=== PATIENT | female | born 1950 | race Caucasian/White ===

== ENCOUNTER → 2024-05-31 12:56 | Outpatient (BNVA) | payer MEDICARE, BC, SELFPAY | PROVIDERS: PCP Family Medicine; Referring Provider Family Medicine; Visit Provider Student in an Organized Health Care Education/Training Program | DX: M17.12 Unilateral primary osteoarthritis, left knee (principal) | CPT/HCPCS: 99215 ==

== ENCOUNTER 2024-11-12 16:07 | Outpatient (CLI) | payer MEDICARE, BC, SELFPAY ==
--- NOTE | 2024-11-12 13:00 | DI.RAD_ITS ---
Exam(s) XR KNEE LT 1V XR STANDING ALIGNMENT EXAM: XR STANDING ALIGNMENT CLINICAL HISTORY: PRE OP L TKA. TECHNIQUE: 2D digital imaging was performed. Standing AP views were performed from the pelvis through the ankles. Lateral view of the left knee COMPARISON: CR XR KNEE 4 VIEW LEFT from 07/28/2023 CR XR KNEE LT 1V from 11/12/2024 FINDINGS: BONES: No acute fracture is present. No bony destructive lesion is seen. Leg length discrepancy: The left femoral head projects approximately 1 cm superior to the right. JOINTS: Knees: There is moderate to severe narrowing of the left medial femoral tibial joint space and periarticular spurring. There is minimal valgus angulation. The right knee joint spaces are maintained. Mild callus chondrocalcinosis. The ankle joints are unremarkable. The hip joints show minimal degenerative changes.. SOFT TISSUE: Vascular calcifications. Venous varicosities. IMPRESSION: Advanced degenerative changes of the medial femoral tibial joint space of the left knee. Mild overall leg length discrepancy. DATA REPOSITORY: RADIATION DOSE DELIVERED:
== END 2024-11-12 16:08 | disposition home or self-care (01) ==
LOC: DIORS 16:08
PROVIDERS: PCP Family Medicine; Visit Provider Physician Assistant
DX: Z01.818 Encounter for other preprocedural examination (principal); M17.12 Unilateral primary osteoarthritis, left knee
CPT/HCPCS: 99024; 73560; 77073

== ENCOUNTER 2024-11-12 17:55 | Outpatient (CLI) | payer MEDICARE, BC, SELFPAY ==
[2024-11-12 14:51] LABS: HCT 39.5 % (36.0-46.0); HGB 13.1 g/dL (11.2-15.7); MCH 32.8 pg (27.0-33.0); MCHC 33.2 % (32.0-36.0); MCV 99 fL (80-95); MPV 9.8 fL (8.0-11.0); Platelet Count 251 10^3/uL (130-400); RBC 4.00 10^6/uL (3.93-5.22); RDW 12.4 % (11.7-14.6); RDW-SD 44.9 fL; WBC 4.82 10^3/uL (4.4-10.8)
[2024-11-12 15:18] LABS: Anion Gap 8.3 mmol/L (3-11); BUN 14 mg/dL (7-18); CO2 30.7 mmol/L (21.0-32.0); Calcium 9.8 mg/dL (8.5-10.1); Chloride 102 mmol/L (98-107); Estimated GFR 98.97 (mL/min/1.73m2); Glucose 97 mg/dL (74-106); Potassium 4.3 mmol/L (3.5-5.1); Sodium 141 mmol/L (136-145)
== END 2024-11-12 17:56 | disposition home or self-care (01) ==
LOC: LBN 17:55
PROVIDERS: PCP Family Medicine; Visit Provider Student in an Organized Health Care Education/Training Program
DX: M17.12 Unilateral primary osteoarthritis, left knee (principal); Z01.818 Encounter for other preprocedural examination
CPT/HCPCS: 80048; 85027

== ENCOUNTER 2024-11-28 09:26 | Day surgery (SDC) | payer MEDICARE, BC, SELFPAY ==
[2024-11-28] VITALS (24 sets, daily range): BP systolic 137–190; BP diastolic 57–106; PULSE 52–78; RESP 12–22; TEMP 36–36.7; O2SAT 97–100; BMI 24.2
--- NOTE | 2024-11-28 07:25 | W.PM.DSUDISC ---
Date of service: 11/28/24 Discharge Plan Disposition Patient Disposition: Home Condition: Good Discharge Details Reason For Visit: L TKR Attending Provider: Nimesh Garcia Primary Care Provider: [place] Meds and New Rx's Prescriptions: New celecoxib 200 mg capsule 200 mg PO BID Qty: 60 0RF aspirin 81 mg tablet,delayed release (DR/EC) 81 mg PO BID Qty: 60 0RF acetaminophen 500 mg tablet 1,000 mg PO TID Qty: 90 3RF hydromorphone 2 mg tablet 2 mg PO Q4H PRN (Reason: pain) Qty: 18 0RF pantoprazole 40 mg tablet,delayed release (DR/EC) 40 mg PO DAILY Qty: 14 0RF dexamethasone 4 mg tablet 4 mg PO DAILY Qty: 2 0RF docusate sodium 100 mg capsule 100 mg PO BID PRNQty: 28 0RF gabapentin 300 mg capsule 300 mg PO QHS Qty: 14 0RF Continued doxycycline hyclate 100 mg tablet,delayed release (DR/EC) 100 mg PO DAILY PRN Patient Comments: ROSACEA FLARE hydrochlorothiazide 25 mg tablet 25 mg PO DAILY nadolol 40 mg tablet 40 mg PO HS zolpidem [Ambien] 10 mg tablet 10 mg PO QHS PRN Slow-Mag 71.5 mg tablet,delayed release (DR/EC) 143 mg PO DAILY estradiol [Vagifem] 10 mcg tablet 10 mcg vaginal .COMPLEX Rx Instructions: 10 mcg vaginal twice a week; Discharge Instructions Additional Instructions: Total Knee Discharge Instructions Activity: The most important activity is to walk and to work on gentle motion (both flexion and extension). You should try to take short walks a few times a day. It is important that when resting you work on keeping the knee straight. Avoid putting a pillow behind the knee as this will encourage flexion. Work on range of motion exercises as provided by Physical Therapy. - Start outpatient physical therapy within 2 weeks. - You should wear the MARIAH hose on both legs for 2 weeks. You may remove these at night. You may also use any compression sock in place of the MARIAH hose. - Utilize [employer] to review exercises, see videos on exercises and obtain basic information pertaining to your surgery and your recovery. Dressing: Remove the Rj wrap by 2 days after your surgery and put on the MARIAH stocking given to you from the hospital. Keep the surgical dressing (underneath the RJ wrap) in place for at least one week. After the first week it may be removed and replaced with light gauze and tape or nothing. The wound and dressing may get wet after 3 days but avoid soaking the dressing or otherwise it will need to be changed. Many people prefer covering the dressing with cling wrap (saran wrap) to minimize it from getting soaked. If it gets wet, just pat dry. If it starts to peel off then it will need to be changed. Medications: - You should take Tylenol and anti-inflammatory Celebrex as your primary pain control medications. If the Celebrex is too expensive or not covered, please call the office for another alternative (Advil/Ibuprofen or Naproxen/Aleve) - You have been prescribed a stronger pain medication hydromorphone for breakthrough pain, take as needed as prescribed. - You have also been prescribed a stomach acid reduction agent Pantoprozole to help reduce stomach acid and reflux. - You have been prescribed Gabapentin to take at night for restlessness and nerve pain. - You will be taking Aspirin 81mg twice a day for DVT prevention unless instructed otherwise. - You have also been prescribed Decadron to take to control post-operative nausea and pain. You will start this tomorrow. - If you have constipation you should take Colace or Miralax (both [id number]). It takes most people 3-4 days to have a bowel movement. Follow-up: 2 weeks If you have any acute concerns or questions, please do not hesitate to contact the office at [phone]. You may contact Dr. Garcia with any questions after hours through the hospital at [phone] or on his cell phone at [phone]. Referrals: Nimesh Garcia MD [ [facility] STAFF PHYSICIAN, Orthopaedic Surgical] Equipment/Supplies: Walker Activity:: Activity as Tolerated Shower/Bathe:: 72 hours Diet:: As Tolerated Discharge Orders Discharge Orders: Discharge Order (Routine); Ordered 11/28/24 Ordered By: Aravind Cooper DS: Diagnosis Discharge Diagnosis (1) Arthritis of left knee: Status: Acute
[2024-11-28] MEDS: Celecoxib 200 MG CAP 400 MG PO (10:42)
[2024-11-28] MEDS: Gabapentin 300 MG CAP PO (10:42)
[2024-11-28] MEDS: Acetaminophen 500 MG TAB 1000 MG PO (10:43)
--- NOTE | 2024-11-28 10:47 | W.ANESPRE ---
General Info Date of Service Date Performed: 11/28/24 Height: 5 ft 2 in Weight: 60 kg Body Mass Index (BMI): 24.2 Surgical Procedure: Operation Date: 11/28/24 12:10 Proposed Procedure Side Surgeon p Knee Total Arthroplasty Left Nimesh Garcia MD Meds Allergies and Home Medications Allergies Allergy/AdvReac Type Severity Reaction Status Date / Time latex Allergy contact Verified 11/28/24 10:12 dermititis Sulfa (Sulfonamide Allergy rash Verified 11/28/24 10:12 Antibiotics) NSAIDS (Non-Steroidal AdvReac gastric Verified 11/28/24 10:12 Anti-Inflamma ulcers Home Medication ?Medication ?Instructions ?Recorded estradiol 10 mcg vaginal tablet 10 mcg vaginal .COMPLEX 10/16/20 (Vagifem) hydrochlorothiazide 25 mg tablet 25 mg PO DAILY 10/16/20 magnesium chloride 71.5 mg 143 mg PO DAILY 10/16/20 (magnesium chloride) tablet,delayed release (Slow-Mag) nadolol 40 mg tablet 40 mg PO HS 10/16/20 zolpidem 10 mg tablet (Ambien) 10 mg PO QHS PRN 10/16/20 doxycycline hyclate 100 mg 100 mg PO DAILY PRN 11/12/24 tablet,delayed release acetaminophen 500 mg tablet 1,000 mg (2 x 500 mg) PO TID #90 11/28/24 tabs aspirin 81 mg tablet,delayed 81 mg PO BID #60 tabs 11/28/24 release celecoxib 200 mg capsule 200 mg PO BID #60 caps 11/28/24 dexamethasone 4 mg tablet 4 mg PO DAILY #2 tabs 11/28/24 docusate sodium 100 mg capsule 100 mg PO BID PRN #28 caps 11/28/24 gabapentin 300 mg capsule 300 mg PO QHS #14 caps 11/28/24 hydromorphone 2 mg tablet 2 mg PO Q4H PRN pain #18 tabs 11/28/24 pantoprazole 40 mg tablet,delayed 40 mg PO DAILY #14 tabs 11/28/24 release Current Visit Medications: Current Medications Generic Name Dose Route Start Last Admin Trade Name Freq PRN Reason Stop Dose Admin Acetaminophen 1,000 mg 11/28/24 06:00 11/28/24 10:43 Acetaminophen 500 Mg Tab PO 11/28/24 23:59 1,000 mg PREOP NAHEED Administration Acetaminophen 1,000 mg 11/28/24 07:24 Acetaminophen 500 Mg Tab PO 12/28/24 07:23 TID PRN PRN Analgesia Celecoxib 400 mg 11/28/24 06:00 11/28/24 10:42 Celecoxib 200 Mg Cap PO 11/28/24 23:59 400 mg PREOP NAHEED Administration Docusate Sodium 100 mg 11/28/24 07:24 Docusate Sodium 100 Mg Cap PO 12/28/24 07:23 BID PRN PRN Constipation Gabapentin 300 mg 11/28/24 06:00 11/28/24 10:42 Gabapentin 300 Mg Cap PO 11/28/24 23:59 300 mg PREOP NAHEED Administration Hydromorphone HCl 0 mg 11/28/24 07:24 Hydromorphone 2 Mg Tab PO 12/28/24 07:23 Q3H PRN PRN Pain Ringer's Solution 1,000 mls @ 80 mls/hr 11/28/24 06:00 IV 11/28/24 23:59 INFUSION NAHEED Cefazolin Sodium/Dextrose 2 gm in 50 mls @ 100 mls/hr 11/28/24 06:00 Ancef Duplex IVPB 11/28/24 23:59 PREOP NAHEED Tranexamic Acid/Sodium Chloride 1,000 mg in 100 mls @ 600 mls/hr 11/28/24 06:00 IVPB 11/28/24 23:59 PREOP NAHEED IV Miscellaneous Supplies 1 each 11/28/24 06:00 Iv Access IV 11/28/24 23:59 DIRECTED NAHEED Ondansetron HCl 4 mg 11/28/24 07:24 Ondansetron 4 Mg/2 Ml Vial IVP 12/28/24 07:23 Q6H PRN PRN Nausea Polyethylene Glycol 17 gm 11/28/24 07:24 Polyethylene Glycol 3350 17 Gm Packet PO 12/28/24 07:23 BID PRN PRN Constipation Sodium Chloride 0 ml 11/28/24 06:00 Normal Saline Flush 10 Ml Syr IV 11/28/24 23:59 PRN PRN Sodium Chloride 0 ml 11/28/24 06:00 Normal Saline 10 Ml Vial IJ 11/28/24 23:59 DIRECTED PRN Sterile Water 0 ml 11/28/24 06:00 Water,Injection,Sterile 10 Ml Vial IJ 11/28/24 23:59 DIRECTED PRN PFSH Active Problems Active Problems: Problem Status Onset Code Arthritis of left knee Acute M17.12 Conductive hearing loss, external ear Acute H90.2 Impacted cerumen, bilateral Acute H61.23 Hyperlipidemia Acute E78.5 Peptic ulcer disease Chronic K27.9 Varicose veins of left lower extremity Acute I83.92 Raynaud disease Acute I73.00 Hypertension Chronic I10 Rosacea Acute L71.9 Medical History Medical History History of 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 White's office Paroxysmal SVT (supraventricular tachycardia) History of rectal fissure Family history of heart disease History of Helicobacter pylori infection Surgical History Surgical History History of squamous cell carcinoma excision Dr. White 07/2021 History of cataract surgery Normal colonoscopy 03/31/2016 terminal ilium bx. ileal mucosa with no acute ilelitis, granulomas or ulcers History of esophagogastroduodenoscopy (EGD) 07/16,12/15 and 02/14 History of oral lesions floor of mouth biopsy 09/19/2008 H/O varicose vein ligation Left leg 02/2007 Status post MATIAS-BSO 2000 for pathology benign dermoid S/P bunionectomy 1998 Tobacco Smoking/Tobacco Use Status: Never Alcohol Alcohol Intake: current Alcohol intake frequency: 0-2 drinks per day Alcohol type: wine Substance Use Substance use: Never Substance use type: does not use Vital Signs and Lab Results Vital Signs Most Recent Vital Signs in EMR: Most Recent Vital Signs Temp Pulse Resp BP Pulse Ox 36.2 C L 66 16 179/106 H 100 11/28/24 10:23 11/28/24 10:23 11/28/24 10:23 11/28/24 10:23 11/28/24 10:23 Lab Results Complete Blood Count: WBC, (4.4-10.8) 4.82 10^3/uL 11/12/24, 14:15 RBC, (3.93-5.22) 4.00 10^6/uL 11/12/24, 14:15 Hgb, (11.2-15.7) 13.1 g/dL 11/12/24, 14:15 Hct, (36.0-46.0) 39.5 % 11/12/24, 14:15 Plt Count, (130-400) 251 10^3/uL 11/12/24, 14:15 Complete Metabolic Panel: Sodium, (136-145) 141 mmol/L 11/12/24, 14:15 Potassium, (3.5-5.1) 4.3 mmol/L 11/12/24, 14:15 Chloride, (98-107) 102 mmol/L 11/12/24, 14:15 Carbon Dioxide, (21.0-32.0) 30.7 mmol/L 11/12/24, 14:15 BUN, (7-18) 14 mg/dL 11/12/24, 14:15 Creatinine, (0.55-1.02) 0.5 mg/dL L 11/12/24, 14:15 Est GFR (CKD-EPI 2020), (mL/min/1.73m2) 98.97 11/12/24, 14:15 Calcium, (8.5-10.1) 9.8 mg/dL 11/12/24, 14:15 Glucose, (74-106) 97 mg/dL 11/12/24, 14:15 Anesthesia Assessment and Plan Anesthesia History Personal History: No History of Anesthesia Complications Family History: No Family History of Anesthesia Complications Exercise Tolerance Exercise Tolerance: Metabolic Equivalents>4 Pertinent Negatives Pertinent Negatives: No Symptoms of GERD, No Major Cardiovascular Symptoms or Complaints, No Major Pulmonary Symptoms or Complaints and No History of CVA/TIA Cardiac & Pulmonary Exam Cardiac Exam: Normal S1/S2 Heart Sounds Pulmonary Exam: Clear Bilateral Breath Sounds Implantable Cardiac Device Does patient have a Pacemaker or an ICD?: No Airway Exam Known Difficult Airway: No Mallampati Class: 2 Mouth Opening: Normal (> 3cm) Thyromental Distance: Greater than 3 cm Neck Range of Motion: Full ROM Neck Circumference: Normal Teeth Condition: Normal Dentition ASA Classification ASA Score: ASA 2 Emergency Case?: No NPO Status NPO Status: NPO Clears >2 hours, Solids >8 hours Anesthesia Plan Resuscitation Status: Full Code Anesthesia Technique: Spinal Anesthesia Airway Planned: Natural Airway Pain Management: Surgeon and patient request nerve block Monitors Used: Standard Monitors and SedLine
[2024-11-28] MEDS: Lactated Ringers 1,000 ML 80 ML IV (11:00)
[2024-11-28] MEDS: ceFAZolin 2 GM/50 ML BAG IVPB (11:15)
[2024-11-28] MEDS: TRANEXAMIC ACID/SOD. CHL. 1,000 MG/100 ML BAG 600 MG IVPB (11:19)
--- NOTE | 2024-11-28 11:45 | W.ANESNERVE ---
Nerve Block Single Injection Procedure Date and Time Date Performed: 11/28/24 Procedure Start: 10:55 Location Where Procedure Performed Procedure Location: Day Surgery Unit Reason Performed: Postoperative Analgesia Requesting Provider: Nimesh Garcia Timeout Performed Timeout Performed: Yes Monitoring Used ECG, Blood Pressure, SpO2 and See EMR for corresponding vital signs Sterility Sterility: Hand Hygiene, Surgical Cap, Surgical Mask, Sterile Gloves and Chlorhexidine Sedation Given During Procedure Sedation Given (Indicate Dose Given): Versed IV Dose:: 1mg Patient Mental Status Patient Mental Status: Sedate with meaningful communication Nerve Block 1st Nerve Block: Laterality: Left Block Type: Adductor Canal Ultrasound Image Saved?: Yes Needle / Catheter Used: 100mm SonoPlex II Local Anesthetic Bolus (Indicate Dose Given): Lidocaine used for local infiltration of skin, Bupivacaine 0.25% Dose:: 8ml and Exparel Dose:: 8ml Additives (Indicate Dose Given): None Ultrasound: Sterile probe cover and gel used Nerve Stimulator: Supplement to Ultrasound use and No twitch or parasthesia noted < 0.5 mA (0.8) Paresthesia: None Procedure Tolerated: No Complications and Patient tolerated well Procedure Outcome: Successful Performed By: Luz Shepard Supervised By: Valentina Belcher 2nd Nerve Block: Laterality: Left Block Type: Other (anterior femoral cutaneous nerve block) Ultrasound Image Saved?: Yes Needle / Catheter Used: 100mm SonoPlex II Local Anesthetic Bolus (Indicate Dose Given): Lidocaine used for local infiltration of skin, Bupivacaine 0.25% Dose:: 2ml and Exparel Dose:: 2ml Additives (Indicate Dose Given): None Ultrasound: Sterile probe cover and gel used Nerve Stimulator: Supplement to Ultrasound use and No twitch or parasthesia noted < 0.5 mA (0.8) Paresthesia: None Procedure Tolerated: Patient tolerated well Procedure Outcome: Successful Performed By: Luz Shepard Supervised By: Valentina Belcher
[2024-11-28] MEDS: HYDROmorphone 2 MG/ML SYR IVP ×2 (13:12→13:24)
--- NOTE | 2024-11-28 13:13 | W.ANESPOSTOP ---
Postoperative Evaluation Date, Time and Location Date Performed: 11/28/24 Time Performed: 13:13 Patient Location: PACU Vital Signs Most Recent Imported Vital Signs: Most Recent Vital Signs Temp Pulse Resp BP Pulse Ox 36.6 C 63 15 155/81 H 99 11/28/24 12:56 11/28/24 12:57 11/28/24 12:57 11/28/24 12:56 11/28/24 12:57 Pain Score Most Recent Pain Score: Most Recent Pain Score Pain Level 5 11/28/24 13:02 Assessment Mental Status: Awake (Alert & Oriented to Patient Baseline) Airway and Respiratory Function: Patent airway with normal (patient baseline) respiratory exam Cardiovascular Function: Hemodynamically Stable Hydration Status: Adequately Hydrated Nausea & Vomiting: No Nausea or Vomiting Pain: Pain is tolerable per patient Peripheral Nerve Block: Regional nerve block not resolved at time of post operative discharge
[2024-11-28] MEDS: HYDROmorphone 2 MG TAB PO (14:30)
[2024-11-28] MEDS: Tranexamic Acid 650 MG TAB 1300 MG PO (15:02)
--- NOTE | 2024-11-28 15:41 | PT.INIE ---
PT Notes Visit Reasons: L TKR Physical Therapy Day Surgery Initial Evaluation Date: 11/28/24 Referring Doctor: CECY Hampton PT Orders: PT CONSULT: left knee OA s/p TKA post op day #0 Precautions: WBAT Patient Profile/Admitting Diagnosis: Selena is a 74 year old female with left knee OA s/p TKA post op day #0. Social History/Home Situation:Retired. Resides with her in a multi-level home with 0 KEITH, full flight to laundry in basement. Equipment Owned/DME: none Subjective: Selena states that she is feeling well. She's agreeable to getting up for PT intervention. Objective: General Observation: Resting in bed, ANABEL wrap to LLE, IV to LUE. Mental Status: A&Ox3 Pain: 2/10 initial; 10 post-rx ROM: Right Upper Extremity: WFL Left Upper Extremity: WFL Right Lower Extremity: WFL Left Lower Extremity: demonstrates AROM 0-100* flexion Strength: Right Upper Extremity: WFL Left Upper Extremity: WFL Right Lower Extremity: WFL Left Lower Extremity: Able to perform SLR without extension lag. Able to pump ankles and wiggle toes Sensation: intact distally Bed Mobility/Transfers: Supine to sit : supervision Sit to stand : supervision Stand to sit : supervision with cues for technique and hand placement Bed to chair: FWW, WBAT, CGA Gait: Ambulates 100'x2 with FWW, CGA-SBA Stairs: Manages therapeutic stairs, 4x3, 6x2 with bilateral upper extremities to rails and SBA, Step to pattern. Balance: Static Sitting: Normal Dynamic Sitting: Normal Static Standing: Good Dynamic Standing: Fair Informed Consent/Education: Patient instructed in purpose of PT consult. Packet containing [] exercise protocol has been given to patient. Education and training on initial set of exercises that can be done at home have been completed with patient. Treatment: Initial Evaluation (74043) Therapeutic Exercises ([id number]): Instructed in the following post-op exercises: Quad sets 10x Ankle Pumps 10x Glute sets 10x heel slides 10x SLR 10x seated march 10x passive knee extension 2-3 minute intervals Assessment: Patient presents with clinical signs and symptoms consistent with current/admitting diagnoses that have resulted to mobility limitations, gait instability, generalized weakness, and impairment of motor control as demonstrated by the following impairment level findings: 1. Decreased strength to left knee major muscle groups 2. Impaired standing balance 3. Limitation of joint range of motion in left knee Impairments are contributing to the following functional limitations: 1. Inability to safely ambulate without assistive device 2. Increase completion time for mobility ADL performance 3. Increased fall risk Patient is assessed as low complexity based on the following: History: 74-year-old female with impairment level findings, functional limitations, and past medical history as indicated above Examination: Demonstrable impairment in strength, balance, and mobility level with underlying impairments and functional limitations as documented above Presentation: stable Decision Making: low Goals: N/A. PT evaluation and 1-2 treatment sessions only for functional mobility training using recommended AD and for HEP instruction. Plan of Care/Treatment Plan: N/A. PT evaluation and 1-2 treatment session only for functional mobility training using recommended AD and for HEP instruction. DISCHARGE RECOMMENDATIONS: Home with outpatient PT. Requires FWW for safe ambulation. TREATMENT CODE/TIME: 60059, [id number] ([id number]) Thank you for the opportunity to participate in the care of this patient. Please sign an return this page within 30 days if you agree with the above POC. Thank you! 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 White's office Paroxysmal SVT (supraventricular tachycardia) History of rectal fissure Family history of heart disease History of Helicobacter pylori infection Surgical History History of squamous cell carcinoma excision Dr. White 07/2021 History of cataract surgery Normal colonoscopy 03/31/2016 terminal ilium bx. ileal mucosa with no acute ilelitis, granulomas or ulcers History of esophagogastroduodenoscopy (EGD) 07/16,12/15 and 02/14 History of oral lesions floor of mouth biopsy 09/19/2008 H/O varicose vein ligation Left leg 02/2007 Status post MATIAS-BSO 2000 for pathology benign dermoid S/P bunionectomy 1999
--- NOTE | 2024-11-28 18:08 | W.PM.OP ---
Operative Note Operative Note PRE-OP DIAGNOSIS: Left Knee Osteoarthritis POST-OP DIAGNOSIS: same PROCEDURE: Left Total Knee Replacement SURGEON: Nimesh Garcia PIPE FITTER SUPERVISOR: Tayo Cooper ANESTHESIA TYPE: Spinal Refer to Anesthesia Record ESTIMATED BLOOD LOSS: 50 PATHOLOGY: none sent TOURNIQUET TIME: 0 COMPLICATIONS: None Patient was transported to: PACU Patient's condition: stable Implants: 1. Depuy Attune Cementless Cruciate Retaining Femoral Component, Size 5 2. Depuy Attune Cementless Fixed Bearing Tibial Component, Size 5 3. Depuy Attune 5x6mm CR/FB Poly Indications: I have seen Selena in clinic for symptoms of knee arthritis, confirmed with radiographic findings. She has exhausted nonoperative methods and was having significant limitations in daily function and desired better function and less pain. I discussed the technical details of a knee replacement. I explained the risks of the procedure to include, but not limited to, bleeding, infection, pain, stiffness, fracture, damage to nerves and vessels, damage to muscles and tendons, loosening, need for repeat procedure, blood clot and cardiopulmonary demise. Despite these risks, Selena elected to proceed. Findings: There was significant signs of arthritis primarily within the medial compartment where there was complete loss of cartilage and irregularity and eburnation of bone.. Procedure Description: Selena was greeted in the preoperative holding area where the correct side was identified and marked. The consent was reviewed with the patient and signed. The history and physical was updated. All questions were answered. Preoperative medications were administered: Acetaminophen 1000mg, Celebrex 400mg, and Gabapentin 300mg. An adductor canal block was then administered by the anesthesia team in the [facility]. She was taken back to the operating room. A spinal anesthestic was then administered. The patient was placed into the supine position on the operating room table. Posts were placed for positioning during the procedure. All bony prominences were well padded. Prophylactic antibiotics in the form of Cefazolin were administered. 1g of Tranxemic Acid was given intravenously within 30 minutes of incision. The left leg was then prepped with Chloraprep and draped in a standard fashion with impervious stockinette. A second prep with Chloraprep was performed prior to application of Iodine impregnated skin protection. A timeout to confirm correct identity, side and site, procedure, allergies, anesthesia, and medical concerns was performed. With the knee in some flexion, a midline incision was made overlying the knee. Full thickness skin flaps were raised once the extensor mechanism was encountered. These were raised medially and laterally. Any bleeding was controlled with electrocautery. Once the extensor mechanism was fully exposed, a medial parapatellar arthrotomy was performed in a flexed position. All bleeding from the arthrotomy and the geniculate arteries was coagulated. A medial subperiosteal peel was performed with electrocautery to the midcoronal plane. The fat pad was removed while keeping the patellar tendon protected. The anterior distal femur synovium was removed for later visualization. The ACL and PCL were resected and the anterior horn of the lateral meniscus was transected. The knee was then flexed with the patella everted. Large osteophytes from the tibia were removed. Large osteophytes from the femur were removed. Using a step drill, and based on preoperative templating, the femoral canal was entered. This was done with a step drill without any difficulty. The intramedullary distal femoral cut guide was inserted, set to a 5 degree valgus cut and 9mm cut thickness. The distal femoral cut guide was then held in position and pinned. With the soft tissues protected, the distal cut was performed. This was passed over a few times to ensure a planar cut. I then turned attention to the tibia. The extramedullary guide was placed onto the leg. The distal aspect was slid medial to adjust for position of center of ankle and stay in line with shaft of the tibia. Approximately 5 degrees of posterior slope was kept in the proximal cutting guide. The center of the guide was aligned with the PCL. The stylus was used to assess cut thickness. The medial side, most involved side, was set for a 4mm cut. This was then held in position and pinned into place with 2 additional pins and a cross pin for stability. The medial and lateral collateral ligaments were protected and the cut was performed. With this completed, it was assessed and noted to be of appropriate dimensions. The guide was removed. A spacer block was inserted and the knee was brought into extension. The 6mm spacer block provided full extension, without hyperextension and with stability of both the medial and lateral collateral ligaments was assessed. The pins from the femur and the tibia were then removed. The distal femur was then sized. The anterior stylus was placed onto the lateral ridge of the anterior femur. This indicated a size 5 femur. The external rotation of the guide was adjusted to 0 degrees to match the epicondylar axis, perpendicular to Vu?s line. The 4-in-1 cutting guide was the placed. The posterior medial femur cut was evaluated and appeared of good thickness. The spacer block was inserted underneath the cutting guide and stability was confirmed in 90 degrees of flexion. An fredy wing was used to confirm appropriate position of the anterior cut to avoid notching. This cutting guide was ensured to be flush on the cut surface and then pinned into place with headed pins. While protecting the soft tissues, quad tendon, and collateral ligaments, the anterior and posterior cuts were performed with a saw. The central two pins were removed and the posterior and anterior chamfers were cut next. The notch-cutting guide was placed. This was pinned to lateralize the femoral component as much as possible while keeping it flush on the cut surface. This was then pinned into position. A reciprocating saw was used to make the notch cut. A rasp smoothed the cut surfaces. The medial and lateral menisci were removed. A trial femoral component was then inserted, impacted down to the cut surfaces, and the lug holes were drilled. A provisional trial tibial component was placed and the knee was brought through range of motion. There was noted to be excellent extension and flexion. There was no significant instability. The patella was tracking without thumbs. A size 6mm polyethylene component provided the best range of motion and stability with less than 2mm gapping with medial and lateral stress and full extension without significant hyperextension. The tibial cut surface was fully exposed. The tibia was then sized as a 5. The tibia had been previously marked during trialing to correspond to the center of the tibial component to help with rotation. The trial was aligned to this tayo, approximately rotated to the medial 1/3rd of the tibial tubercle. The trial was pinned into place. The tibia was prepared with a reamer and a keel punch and lug holes. The trial components were removed. The final components were opened on the back table. The periosteal and capsular tissues, especially posteriorly, around the knee were then systematically injected with a periarticular cocktail consisting of 246mg of Ropivacaine, 0.5mg of Epinephrine, 0.08mg of Clonidine, and 30mg of Ketorolac, diluted to 100cc. On the back table, with the implants opened. The cementless knee components were placed. Starting with the tibial component, the tibia was subluxed anteriorly and the lug holes of the component were lined up. The tibia was then impacted with an impactor and mallet until the tibial component was in contact with the tibia. Then, the femoral component was inserted. The lug holes were aligned and the component was impacted into position. The final polyethylene component was inserted. The knee was irrigated with Surgiphor Betadine solution. This was allowed to sit in the knee for 3 minutes and then it was irrigated out with saline. The patella was tracking with a no-thumbs technique. A complete synovectomy was performed around the periphery of the patella. A lateral facetectomy was also performed. The capsule was then reapproximated with a No. 1 Vicryl at multiple locations. The capsule was finally closed with a No. 2 Stratafix, barbed suture. Deep tissues were then reapproximated with 0 Vicryl and 2-0 Vicryl. The skin was closed with a running 3-0 Monocryl in a subcuticular fashion. This was reinforced with skin glue. A Mepilex silver dressing was applied along with a [id number] ANABEL wrap. A CryoCuff was applied. Selena was transferred to the hospital bed without difficulty an suffering no apparent complication. Selena has a good prognosis. Physical therapy will start today and without restrictions, weight-bearing as tolerated. Aspirin 81mg BID will be used for DVT prophylaxis. Date of Procedure: 11/28/24
== END 2024-11-28 16:09 | disposition home or self-care (01) ==
LOC: SUR 09:26
PROVIDERS: PCP Family Medicine; Visit Provider Student in an Organized Health Care Education/Training Program
PROC: (CPT 27447; principal; 2024-11-28 12:00)
DX: M17.12 Unilateral primary osteoarthritis, left knee (principal); G89.18 Other acute postprocedural pain
CPT/HCPCS: 27447; 64447; 64450; 97110; 97161; C1776; J0665; J0666; J0690; J1100; J1171; J2003; J2250; J2401; J2405; J2704

== ENCOUNTER 2024-12-13 13:03 | Outpatient (CLI) | payer MEDICARE, BC, SELFPAY ==
--- NOTE | 2024-12-13 11:15 | DI.RAD_ITS ---
Exam(s) XR KNEE LT 1V EXAM: XR KNEE LT 1V CLINICAL HISTORY: F/U LEFT TKA. TECHNIQUE: 2D digital imaging was performed. COMPARISON: CR XR KNEE LT 1V from 11/12/2024 FINDINGS: Single lateral view of the left knee: Satisfactory position alignment of the components of the recently placed prosthesis. No fracture or loosening evident. No evidence of osteomyelitis. IMPRESSION: Stable satisfactory appearance DATA REPOSITORY: RADIATION DOSE DELIVERED:
--- NOTE | 2024-12-13 11:15 | DI.RAD_ITS ---
Exam(s) XR STANDING ALIGNMENT EXAM: XR STANDING ALIGNMENT CLINICAL HISTORY: F/U LEFT TKA. TECHNIQUE: 2D digital imaging was performed. COMPARISON: CR XR STANDING ALIGNMENT from 11/12/2024 FINDINGS: 3 views There has been interval placement of a left knee prosthesis appears satisfactory. There are minimal degenerative changes in the right knee. Chondrocalcinosis in the right is noted. Both hips appear unremarkable. No obvious degenerative changes in the ankles. Appearance of the mid-inferior aspects of the right tibia fibula reflect healed fracture sites. There are no acute osseous findings. Femoral artery calcification is noted bilaterally. SI joints appear unremarkable. IMPRESSION: As above. DATA REPOSITORY: RADIATION DOSE DELIVERED:
--- NOTE | 2024-12-13 11:30 | DI.RAD_ITS ---
Exam(s) XR HIP LT 1V EXAM: XR HIP LT 1V CLINICAL HISTORY: LEFT HIP PAIN. TECHNIQUE: 2D digital imaging was performed. COMPARISON: No exams were available for comparison FINDINGS: Single frog lateral view of the left hip: No evidence of fracture on this single view. No osseous lesions. Mild osteoarthritic degenerative changes noted. Femoral artery calcification noted. IMPRESSION: No fracture nor osseous lesions in the left hip evident on the single view study. DATA REPOSITORY: RADIATION DOSE DELIVERED:
== END 2024-12-13 13:04 | disposition home or self-care (01) ==
LOC: DIORS 13:03
PROVIDERS: PCP Family Medicine; Referring Provider Family Medicine; Visit Provider Physician Assistant
DX: M25.552 Pain in left hip (principal); M16.12 Unilateral primary osteoarthritis, left hip; Z47.1 Aftercare following joint replacement surgery; Z96.652 Presence of left artificial knee joint; M17.12 Unilateral primary osteoarthritis, left knee
CPT/HCPCS: 99213; 73501; 73560; 77073

== ENCOUNTER → 2025-01-10 13:21 | Outpatient (BNVA) | payer MEDICARE, BC, SELFPAY | PROVIDERS: PCP Family Medicine; Referring Provider Family Medicine; Visit Provider Student in an Organized Health Care Education/Training Program | DX: Z47.1 Aftercare following joint replacement surgery (principal); Z96.652 Presence of left artificial knee joint | CPT/HCPCS: 99024 ==

== ENCOUNTER → 2025-02-21 14:09 | Outpatient (BNVA) | payer MEDICARE, BC, SELFPAY | PROVIDERS: PCP Family Medicine; Referring Provider Family Medicine; Visit Provider Physician Assistant | DX: Z47.1 Aftercare following joint replacement surgery (principal); M17.12 Unilateral primary osteoarthritis, left knee | CPT/HCPCS: 99024 ==